=== PATIENT | female | born 1990 | race Hispanic/Latino ===

== ENCOUNTER 2017-05-12 02:28 | Inpatient (IN) | payer MEDICAID ==
[~2017-05-12] VITALS: Ht 167.6 cm; Wt 87.5 kg
[2017-05-12] MEDS ORDERED: PREN1TAB89 PO (02:42)
[2017-05-12] MEDS ORDERED: FERR1TAB22 PO (02:43)
[2017-05-12 02:55] LABS: APPEARANCE,URINE Clear (CLEAR); BILIRUBIN,URINE Negative (NEGATIVE); COLOR,URINE Yellow (YELLOW); GLUCOSE, URINE (UA) Negative (NEGATIVE); KETONES,URINE Trace mg/dL (NEGATIVE); LEUKOCYTE ESTERASE ,URINE Trace (NEGATIVE); NITRATE,URINE Negative (NEGATIVE); OCCULT BLOOD,URINE Negative (NEGATIVE); PROTEIN,URINE Negative (NEGATIVE); UROBILINOGEN,URINE 0.2 mg/dL (0.2-1.0)
[2017-05-12 03:01] LABS: BACTERIA,URINE Rare /HPF (None Seen); MUCUS,URINE Moderate LPF (None Seen); RBC,URINE None Seen /HPF (0-1); SQUAMOUS EPITHELIAL CELL,UR Moderate /HPF (0-2)
[2017-05-12] MEDS ORDERED: FERR-82 PO (03:34)
[2017-05-12] MEDS ORDERED: LACTATED RINGERS 1000ML 1,000 ML IV ONE ×3 (04:05→11:29)
[2017-05-12] MEDS ORDERED: LACTATED RINGERS 1000ML 1,000 ML IV PRN (04:32)
[2017-05-12] MEDS ORDERED: LACTATED RINGERS 1000ML 1,000 ML IV SCH (04:45)
[2017-05-12] MEDS ORDERED: PROMETHAZINE HCL 25 MG/ML 1ML AMPULE IM PRN (04:45)
[2017-05-12] MEDS ORDERED: MEPERIDINE-PF 50 MG/ML SYG IVP PRN (04:45)
[2017-05-12 05:01] LABS: HEMATOCRIT 36.3 % (36-48); MEAN CORPUSCULAR HEMOGLOBIN 27.5 pg (27.0-33.0); MEAN CORPUSCULAR HGB CONC 33.3 g/dL (32.0-36.0); MEAN CORPUSCULAR VOLUME 82.4 fL (79-99); PLATELET COUNT (AUTO) 277 K/uL (130-400); RED BLOOD CELL COUNT(AUTO) 4.41 MIL/uL (4.00-5.50); RED CELL DISTRIBUTION WIDTH 18.1 % (11.0-15.5); WHITE BLOOD COUNT (AUTO) 11.5 K/uL (4.8-10.8)
[2017-05-12] MEDS ORDERED: OXYTOCIN 10 USP UNITS/ML ONE ×2 (07:22→11:29)
[2017-05-12] MEDS ORDERED: OXYTOCIN 10 USP UNITS/ML 20 UNIT in LACTATED RINGERS 1000ML 1,000 ML IV SCH (07:30)
[2017-05-12] MEDS ORDERED: LANOLIN 30GM OINTMENT TP PRN (09:30)
[2017-05-12] MEDS ORDERED: BENZOCAINE/LANOLIN/ALOE VERA 60 ML AEROSOL TP PRN (09:30)
[2017-05-12] MEDS ORDERED: WITCH HAZEL 1 PAD TP PRN (09:30)
[2017-05-12] MEDS ORDERED: MEASLES/MUMPS/RUBELLA VACCINE, LIVE 0.5 ML/VIAL SQ PRN (09:30)
[2017-05-12] MEDS ORDERED: ACETAMINOPHEN-CODEINE 300/30MG TAB PO PRN (09:30)
[2017-05-12] MEDS ORDERED: DIPH,PERTUSS(ACELL),TET VAC/PF 0.5 ML VIAL IM PRN (09:30)
[2017-05-12 11:42] VITALS: BP 100/54
[2017-05-12 15:19] VITALS: BP 93/52
[2017-05-12] MEDS: IBUPROFEN 800 MG TAB PO PRN (17:52)
[2017-05-12 19:12] VITALS: BP 96/59
[2017-05-12 20:30] VITALS: BP 90/64
[2017-05-12] MEDS: DOCUSATE SODIUM 100 MG CAP PO SCH (20:49)
[2017-05-12 23:15] VITALS: BP 106/70
[2017-05-13 03:10] VITALS: BP 96/62
[2017-05-13 07:32] VITALS: BP 93/63
[2017-05-13] MEDS: DOCUSATE SODIUM 100 MG CAP PO SCH (08:36)
[2017-05-13] MEDS: IBUPROFEN 800 MG TAB PO PRN (08:38)
[2017-05-13 10:14] LABS: HEPATITIS Bs ANTIGEN SCREEN P Negative (Negative)
[2017-05-13 11:39] VITALS: BP 108/72
== END 2017-05-13 13:50 | disposition home or self-care (01) | DRG 560 ==
LOC: EDH 02:28 → LDH 02:29 → OBSVTOIN 02:29 → WSH 11:32
PROVIDERS: ADMIT Specialist; ATTEND Specialist
PROC: 10E0XZZ Delivery of Products of Conception, External Approach (ICD-10-PCS; principal; 2017-05-12)
PROC: 0W8NXZZ Division of Female Perineum, External Approach (ICD-10-PCS; 2017-05-12)
PROC: 10907ZC Drainage of Amniotic Fluid, Therapeutic from Products of Conception, Via Natural or Artificial Opening (ICD-10-PCS; 2017-05-12)
PROC: 3E0234Z Introduction of Serum, Toxoid and Vaccine into Muscle, Percutaneous Approach (ICD-10-PCS; 2017-05-12)
PROC: 3E0134Z Introduction of Serum, Toxoid and Vaccine into Subcutaneous Tissue, Percutaneous Approach (ICD-10-PCS; 2017-05-12)
DX: O69.1XX0 Labor and delivery complicated by cord around neck, with compression, not applicable or unspecified (principal); O34.219 Maternal care for unspecified type scar from previous cesarean delivery; O71.82 Other specified trauma to perineum and vulva; Z3A.38 38 weeks gestation of pregnancy; Z37.0 Single live birth; Z23 Encounter for immunization
CPT/HCPCS: 36415; 81001; 85027; 86592; 86850; 86900; 86901; 87340; 90715; J2175; J2550; J2590; J7120

== ENCOUNTER 2017-08-01 06:51 | Day surgery (SDC) | payer MEDICAID ==
[2017-07-28 15:49] VITALS: BP 115/58
[2017-07-28 15:49] LABS: BASOPHILS % (AUTO) 0.6 % (0.0-5.0); EOSINOPHILS % (AUTO) 4.5 % (0.0-8.0); LYMPHOCYTES % (AUTO) 27.5 % (21.0-51.0); MEAN CORPUSCULAR HEMOGLOBIN 28.6 pg (27.0-33.0); MEAN CORPUSCULAR VOLUME 84.1 fL (79-99); MONOCYTES % (AUTO) 7.7 % (3.0-13.0); NEUTROPHILS % (AUTO) 59.7 % (40.0-77.0); PLATELET COUNT (AUTO) 289 K/uL (130-400); RED BLOOD CELL COUNT(AUTO) 4.16 MIL/uL (4.00-5.50); RED CELL DISTRIBUTION WIDTH 14.7 % (11.0-15.5); WHITE BLOOD COUNT (AUTO) 9.6 K/uL (4.8-10.8)
[~2017-08-01] VITALS: Ht 167.6 cm; Wt 81.9 kg
[2017-08-01] VITALS (24 sets, daily range): BP systolic 91–122; BP diastolic 43–77
[~2017-08-01 06:51] MED LIST: LACTATED RINGERS 1000ML 1,000 ML IV SCH
[2017-08-01] MEDS ORDERED: PROPOFOL 10 MG/ML 20ML VIAL IV ONE (08:00)
[2017-08-01] MEDS ORDERED: VASOPRESSIN 20 UNITS/ML 1ML VIAL ONE (08:00)
[2017-08-01] MEDS ORDERED: FENTANYL CITRATE PF 50 MCG/1 ML 2ML VIAL ONE ×2 (08:00→08:44)
[2017-08-01] MEDS ORDERED: MIDAZOLAM HCL 1 MG/ML 2ML VIAL ONE (08:00)
[2017-08-01] MEDS ORDERED: STRONG IODINE SOLUTION 30ML BOTTLE ONE (08:00)
[2017-08-01] MEDS ORDERED: GLYCOPYRROLATE 0.2 MG/ML 5 ML VIAL ONE (09:00)
[2017-08-01] MEDS ORDERED: DEXAMETHASONE SOD PHOSPHATE 10MG/ML 1ML VIAL ONE (09:00)
[2017-08-01] MEDS ORDERED: ONDANSETRON HCL 4 MG/2 ML VIAL ONE ×2 (09:00→10:27)
[2017-08-01] MEDS ORDERED: LIDOCAINE PF 2% 5ML ABBOJECT ONE (09:00)
== END 2017-08-01 11:38 | disposition home or self-care (01) ==
LOC: DAH 06:51
PROVIDERS: ATTEND Specialist
DX: N87.1 Moderate cervical dysplasia (principal)
CPT/HCPCS: 36415 ×2; 57520; 84703; 85025; 86850 ×2; 86900 ×2; 86901 ×2; 88307; A4351; A4510; A4600; J1100; J2001; J2250; J2405 ×2; J2704; J3010 ×2; J3490 ×2; J7120 ×2